=== PATIENT | male | born 1950 | race Caucasian/White ===

== ENCOUNTER → 2016-07-02 | Outpatient (REF) ==
[~2016-07-02] MED LIST: FISH OIL1 IU PO; GLUCOSAMINE & C1 CA1 PO; LISINOPRIL20 MG PO; LORTAB 5/500 501 TAB PO; SINGULAIR 110 MG/TAB PO
== END ==
LOC: WSOH 08:16
DX: Z02.89 Encounter for other administrative examinations (principal)

== ENCOUNTER 2019-06-27 06:20 | Day surgery (SDC) | payer MEDICARE, OTHER ==
[~2019-06-27] VITALS: Ht 170.2 cm; Wt 81.2 kg
[2019-06-27 06:37] VITALS: BP 130/80; PULSE 61; TEMP 98.3
[2019-06-27] MEDS ORDERED: PROTONIX 40MG T40 MG PO (06:41)
[2019-06-27] MEDS ORDERED: VALTREX 50500 MG/TAB PO (06:41)
[2019-06-27 07:57] VITALS: BP 110/74; PULSE 53; TEMP 97.6
--- NOTE | 2019-06-27 07:57 | NUR ---
Pt arrived back to room via cart with Josiah RN. Pt ambulated easily to chair with 1 person touch assist with no problems. Received report at chair side. VSS and WNL but some times ross HR (which is baseline for pt). Pudding and juice brought per pt's request, and he denies pain or nausea.
[2019-06-27 08:00] VITALS: BP 119/78; PULSE 54
--- NOTE | 2019-06-27 08:00 | NUR ---
Pt sitting in chair comfortably with at chair side. VSS and WNL. Pt able to eat pudding and drink juice without c/o nausea or pain.
[2019-06-27 08:15] VITALS: BP 90/58; PULSE 60
--- NOTE | 2019-06-27 08:15 | NUR ---
Pt sitting comfortably in chair, and he states "I feel so comfortable." Pt states that he is ready to go home whenever. VSS and WNL. Care handed over to ANGELA Landry to complete pt's care to DC.
[2019-06-27 08:18] VITALS: BP 110/74; PULSE 56; TEMP 97.6
--- NOTE | 2019-06-27 08:30 | NUR ---
Discharge instructions reviewed. Pt voices understanding. IV site discontinued with all parts intact. Pt up to dress. Call light within reach.
--- NOTE | 2019-06-27 08:45 | NUR ---
Pt escorted to private car via wheel chair. Pt accompanied home by his .
== END 2019-06-27 08:45 | disposition home or self-care (01) ==
LOC: SDCO 06:20
DX: K21.0 Gastro-esophageal reflux disease with esophagitis (principal); R19.7 Diarrhea, unspecified; R68.81 Early satiety; Z88.8 Allergy status to other drugs, medicaments and biological substances; F41.9 Anxiety disorder, unspecified; Z87.891 Personal history of nicotine dependence
CPT/HCPCS: J2250; J3010; J7030

== ENCOUNTER 2020-01-09 08:24 | Inpatient (IN) | payer MEDICARE, OTHER ==
[~2020-01-09] VITALS: Ht 170.2 cm; Wt 77.3 kg
[~2020-01-09 08:24] MED LIST changes: +PROTONIX 40MG T40 MG PO; +VALTREX 50500 MG/TAB PO
[2020-01-24] VITALS (13 sets, daily range): BP systolic 89–115; BP diastolic 53–71; PULSE 63–80; TEMP 97.6–97.9
[2020-01-24] MEDS ORDERED: FLEXERIL5 MG PO (07:24)
[2020-01-24] MEDS ORDERED: EPA FISH OIL1 SGL PO (07:26)
[2020-01-24] MEDS ORDERED: PRINIVIL20 MG PO (07:27)
[2020-01-24] MEDS ORDERED: PAMELOR 25MG25 MG PO (07:27)
--- NOTE | 2020-01-24 11:49 | NUR ---
Patient to room via bed from PACU. Patient is alert and oriented. Explains that his legs feel like concrete. Oriented to room. Small amount of drainage noted on abd dressing. Barbara drain connected to LIS, small amount of bloody drainage noted in cannister and tubing. Martin to dependent drainage with peach colored urine noted in bag and tubing. at bedside with patient. Ice chips provided.
--- NOTE | 2020-01-24 13:17 | NUR ---
Lying in bed with eyes open. at bedside. Patient says that he has most feeling in his legs and feet back. Is feeling some pains off and on in his abd, nothing to bad at this time. Discussed epidural with the patient. Patient denies additional needs at this time.
[2020-01-24] MEDS ORDERED: ONE-A-DAY ESSE1 EACH PO (13:36)
[2020-01-24 14:43] LABS: HEMOGLOBIN 10.8 g/dl (13.5-18.0)
[2020-01-24 14:44] LABS: HEMATOCRIT 33.4 % (42.0-52.0)
--- NOTE | 2020-01-24 17:25 | NUR ---
Lying in bed in supine position. Having minimal pain in abd. Epidural in place and patient knows to use button when having pain. Dressing to abd with discharge noted. Barbara GOULD. Veronica to dependent drainage with tea colored urine in bag. Patient continues to eat ice chips. On phone with daughter. Denies additional needs at this time.
--- NOTE | 2020-01-25 01:44 | NUR ---
Pt. sitting up in chair at this time. Pt. is A&OX3, assessment complete. IV to rt. forearm patent, IV fluids infusing per orders. INT to lt. hand patent. Epidural intact, Pt. reports good pain management. Pt. assisted back to bed with 2 assist. Pt. has a abd. midline incision, dressing CDI. Barbara drain noted to suction, bloody drainage noted. Pt. denies further needs, yolanda light within reach.
[2020-01-25 04:11] VITALS: BP 130/77; PULSE 78; TEMP 97.8
[2020-01-25 06:36] LABS: BASO % 0.1 % (0.0-2.0); GRAN # 9.6 (1.4-6.5); GRAN % 84.1 % (42.2-75.2); HEMOGLOBIN 10.5 g/dl (13.5-18.0); LYMPH # 0.8 (1.2-3.4); LYMPH % 6.6 % (20.0-51.0); MEAN CELL VOLUME 89 fl (80.0-100.0); MEAN CORPUSCULAR HEMOGLOBIN 29 pg (27.0-31.0); MEAN CORPUSCULAR HGB CONC 33 g/dl (33.0-37.0); MEAN PLATELET VOLUME 11.4 fl (7.4-10.4); MONO % 8.8 % (1.7-9.3); PLATELET COUNT 215 K/mm3 (130-400); REDCELL DISTRIBUTION WIDTH-CV 14.2 % (11.5-14.5)
[2020-01-25 06:55] LABS: CALCIUM 8.2 mg/dL (8.4-10.2); CREATININE, serum 0.63 (0.66-1.25); POTASSIUM 4.5 mmol/L (3.4-5.0)
--- NOTE | 2020-01-25 08:00 | NUR ---
PATIENT IS A&O. VSS. REPORTS PAIN IS MINIMAL. PATIENT INDEPENDENT IN ROOM. PATIENT REPORTS PASSING GAS AND HAD SMALL, PEBBLE SIZED BM THIS AM. NO C/O N/V. TOLERATING SIPS & CHIPS WELL. HEAD TO TOE ASSESSMENT WNL.
[2020-01-25 08:11] VITALS: BP 128/79; PULSE 84; TEMP 99
--- NOTE | 2020-01-25 09:18 | NUR ---
Initial visit; Patient thanked Lead Informatica Developer for coming in and visiting and offering spiritual care, especially prayer and offering God's blessings.
--- NOTE | 2020-01-25 09:30 | NUR ---
Movie Actor met with patient to discuss discharge planning. [place] in [place] [facility] with his , Ora (ph#[phone]) [address] sees Dr. Basilio for primary care. Patient obtains medications from [facility] in [place] with no difficulties. Patient does not use any DME and reports independence with ADLS. Patient states he has DPOA-HC and Living Will but there is not a copy here. Patient states his will be in today or tomorrow and he will ask her to bring a copy. Patient plans to return home upon discharge. SW will continue to follow as needed.
[2020-01-25 11:18] VITALS: BP 146/77; PULSE 68; TEMP 97.7
--- NOTE | 2020-01-25 13:15 | NUR ---
AT BEDSIDE. SEE ORDERS.
--- NOTE | 2020-01-25 13:20 | NUR ---
CUT & BAG YESY DRAIN. REMOVED ABD POST OP DRESSING AND APPLIED 4X4 GAUZE & HYPAFIX TAP. IV TO INT. PATIENT DOING WELL. ZAMBRANO TO DD WITH MOD AMOUNTS OF YELLOW URINE NOTED. EPID INPLACE AND WAS DECREASED BY ANESTHESIA TO 5CC/HR. NO C/O PAIN. NO C/O N/V.
[2020-01-25 15:44] VITALS: BP 117/64; PULSE 70; TEMP 98.2
[2020-01-25 20:09] VITALS: BP 142/74; PULSE 78; TEMP 97.9
[2020-01-26] VITALS (7 sets, daily range): BP systolic 118–145; BP diastolic 64–85; PULSE 70–94; TEMP 97.9–98.8
--- NOTE | 2020-01-26 05:02 | NUR ---
Patient has rested well throughout the night. Martin catheter continues to drain bloody urine with some clots present. Barbara drain is cut and bagged with minimal output. Incisional dressing to abdomen is clean, dry, and intact. Patient states he is feeling a lot of "gurgling" in his abdomen. INT to right wrist and left hand flush with ease. Epidural noted to be stopped at the beginning of the shift. Anesthesia notified and ordered to restart epidural. This was completed per their orders. Patient stated his pain has been much better controlled since the epidural was restarted. Denies any further needs. Will continue to monitor.
--- NOTE | 2020-01-26 07:00 | NUR ---
Report received from Belem Sharif. pt in bed resting, assisted up to bathroom, pt ambulates well, denies needs, will continue to monitor.
--- NOTE | 2020-01-26 09:00 | NUR ---
Assessment charted. Pt able to put antibiotic ointments around meatus. Pt doing well, appears anxious, tried to talk through care plan and help alleviate some anxiety. Encouraging PO intake as urine is reddish and has clots in it. Called Dr. Noguera and plan is to stop epidural, called Anesthesia nad they will be here at 1030, premedicateda t this time and will turn off at 1000. Midline is CDI. Barbara drain site has SS drainage into wee bag in small amount. Pt doing well, will continue to monitor.
--- NOTE | 2020-01-26 16:18 | NUR ---
Barbara drain dc'd per Dr. Noguera's TORB. Pt tolerated well, pressure held at site, gauze and tegaderm placed over site to heal. Pt showered, states he feels very "tuckered out after today". Resting in bed, denies needs. at bedside. Urine draining to DD in bag at side of bed is still red with intermittent clots. Will give bedside shift report to nightshift nurse who will resume care.
[2020-01-27 04:00] VITALS: BP 125/70; PULSE 76; TEMP 98.4
--- NOTE | 2020-01-27 04:38 | NUR ---
Patient noted to have anxiety before bed. PRN anxiety medication and benadryl given with HS medications. Patient states this was very helpful for his anxiety. Martin catheter is draining clear, pinkish urine. Urine looks a lot better than yesterday. Patient c/o pain to abdomen. PRN pain medication administered. This was noted to be effective. Previous drain site covered with gauze and tegaderm. Midline incision is open to air. Patient ambulates independently. Notified Dr. Noguera about patient requesting TUMS. Order received. Denies any further needs. Will continue to monitor.
[2020-01-27 08:29] VITALS: BP 123/73; PULSE 81; TEMP 97.7
== END 2020-01-27 11:04 | disposition home or self-care (01) | DRG 708 ==
LOC: INPTSU 01-24 05:36 → SURG 01-24 07:30
PROVIDERS: ADMIT Urology
PROC: 0VB30ZZ Excision of Bilateral Seminal Vesicles, Open Approach (ICD-10-PCS; 2020-01-24)
PROC: 07BC0ZZ Excision of Pelvis Lymphatic, Open Approach (ICD-10-PCS; 2020-01-24)
PROC: 0VT00ZZ Resection of Prostate, Open Approach (ICD-10-PCS; principal; 2020-01-24 07:30)
DX: C61 Malignant neoplasm of prostate (principal); F41.9 Anxiety disorder, unspecified; M19.90 Unspecified osteoarthritis, unspecified site; K21.9 Gastro-esophageal reflux disease without esophagitis; I10 Essential (primary) hypertension; E78.00 Pure hypercholesterolemia, unspecified; Z87.891 Personal history of nicotine dependence; G89.29 Other chronic pain
CPT/HCPCS: A9284; J0690; J1940; J2250; J2370; J2405; J2704; J2795; J3010; J7030; J7120